=== PATIENT | male | born 1970 | race African-American/Black ===

== ENCOUNTER 2017-02-23 12:21 | Emergency (ER) | payer MEDICAID ==
--- NOTE | 2017-02-23 12:32 | ER Document Report ---
ED Medical Screen (RME) - General Chief Complaint: Urinary Problem Stated Complaint: URINARY PROBLEM Time Seen by Provider: 02/23/17 12:30 TRAVEL OUTSIDE OF THE [place] IN LAST 30 DAYS: No - HPI Notes: 02/23/17 12:32 Difficulty holding urine for to 3 months of bilateral hand numbness 2-3 months - Related Data Allergies/Adverse Reactions: No Known Allergies Allergy (Verified 02/23/17 12:27) Home Medications: Current Home Medications No Home Medications 02/23/17 [History] Past Medical History Renal/ Medical History: Denies: Hx Peritoneal Dialysis Review of Systems - Review of Systems Constitutional: Other - Difficulty holding urine to 3 months bilateral hand numbness 2-3 months Physical Exam - Vital signs Vitals: Temp Pulse Resp BP Pulse Ox 97.8 F 72 16 111/72 100 02/23/17 12:24 02/23/17 12:24 02/23/17 12:24 02/23/17 12:24 02/23/17 12:24 - Respiratory Respiratory status: No respiratory distress Chest status: Nontender Breath sounds: Normal Chest palpation: Normal Course - Re-evaluation Re-evalutation: 02/23/17 12:32 Nontoxic we will send patient to the back for further evaluation. - Vital Signs Vital signs: Temp Pulse Resp BP Pulse Ox 97.8 F 72 16 111/72 100 02/23/17 12:24 02/23/17 12:24 02/23/17 12:24 02/23/17 12:24 02/23/17 12:24
[2017-02-23 13:03] LABS: APPEARANCE,URINE CLEAR; BILIRUBIN,URINE NEGATIVE (NEGATIVE); GLUCOSE, URINE NEGATIVE (NEGATIVE); KETONES,URINE NEGATIVE (NEGATIVE); LEUKOCYTE ESTERASE,URINE NEGATIVE (NEGATIVE); NITRITE,URINE NEGATIVE (NEGATIVE); PROTEIN,URINE NEGATIVE (NEGATIVE); URINE SPECIFIC GRAVITY 1.014; UROBILINOGEN,URINE NEGATIVE mg/dL (<2.0)
--- NOTE | 2017-02-23 13:05 | ER Document Report ---
ED General - General Chief Complaint: Urinary Problem Stated Complaint: URINARY PROBLEM Time Seen by Provider: 02/23/17 12:30 Information source: Patient Notes: 46-year-old male who presents today with what he states is 3 months of intermittent numbness to bilateral hands. He states it is worse when he wakes up. He denies any weakness or pain. He denies any numbness to any other location of his body. Patient on review of systems also states around 2 weeks he is having some "dribbling urine". He denies any abdominal pain, penile lesions, testicular pain or swelling, back pain, or flank pain. Patient denies a history of this previously. 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 TRAVEL OUTSIDE OF THE [place] IN LAST 30 DAYS: No - HPI Onset: Other - See above Onset/Duration: Gradual Quality of pain: No pain Severity: Mild Pain Level: Denies Associated symptoms: Other - See above Exacerbated by: Denies Relieved by: Denies Similar symptoms previously: No Recently seen / treated by doctor: No - Related Data Allergies/Adverse Reactions: No Known Allergies Allergy (Verified 02/23/17 12:27) Home Medications: Current Home Medications No Home Medications 02/23/17 [History] Past Medical History - General Information source: Patient - Social History Smoking Status: Never Smoker Chew tobacco use (# tins/day): Yes Frequency of alcohol use: None Drug Abuse: None Family History: Reviewed & Not Pertinent Renal/ Medical History: Denies: Hx Peritoneal Dialysis Review of Systems - Review of Systems Constitutional: denies: Fever Cardiovascular: denies: Chest pain, Palpitations Respiratory: denies: Short of breath Gastrointestinal: denies: Vomiting Genitourinary: denies: Burning, Dysuria, Frequency, Flank pain, Hematuria Musculoskeletal: denies: Leg swelling Skin: Other - no hives. denies: Rash Neurological/Psychological: Other - no slurred speech -: Yes All other systems reviewed and negative Physical Exam - Vital signs Vitals: Temp Pulse Resp BP Pulse Ox 97.8 F 72 16 111/72 100 02/23/17 12:24 02/23/17 12:24 02/23/17 12:24 02/23/17 12:24 02/23/17 12:24 Notes: Reviewed vital signs and nursing note as charted by RN. CONSTITUTIONAL: Alert and oriented and responds appropriately to questions. Well -appearing; well-nourished HEAD: Normocephalic; atraumatic EYES: PERRL of left eye; false eye right eye; Conjunctivae clear, sclerae non- icteric ENT: Normal nose; no rhinorrhea; moist mucous membranes; no intraoral lesions present NECK: Supple without meningismus; non-tender; no cervical lymphadenopathy, no masses CARD: Regular rate and rhythm; no murmurs, no clicks, no rubs, no gallops; symmetric distal pulses RESP: Normal chest excursion without splinting or tachypnea; breath sounds clear and equal bilaterally ABD/GI: Normal bowel sounds; non-distended; soft, non-tender GI/: No penile lesions. No testicular pain or swelling. BACK: The back appears normal and is non-tender to palpation, there is no CVA tenderness EXT: Normal ROM in all joints; non-tender to palpation; no cyanosis, no effusions, no edema SKIN: Normal color for age and race; warm; dry; good turgor; capillary refill < 2 seconds; no acute lesions noted NEURO: Patient has 5 out of 5 bilateral upper and lower extremity strength. Patient's sensation is intact to light touch. No obvious erythema or induration to the extremities. PSYCH: The patient's mood and manner are appropriate. Grooming and personal hygiene are appropriate. Course - Re-evaluation Re-evalutation: 02/23/17 13:04 Given the above history and physical examination we will obtain electrolytes, and urinalysis and a urine chlamydia/gonorrhea. Patient currently has no penile lesions, testicular pain or swelling, abdominal pain, flank pain, or neurological deficits. Patient does work a manual labor job with numbness to bilateral hands worse in the morning. This is concerning most likely for carpal tunnel syndrome. 02/23/17 14:14 Labs as recorded. Normal magnesium. No change in examination. Patient's creatinine 1.1. Slightly elevated potassium that is nonspecific. Patient takes no medications. Urine analysis shows no infection. Urine chlamydia/ gonorrhea is pending. Patient will be discharged home with strict return precautions and referral to orthopedics for further evaluation of his possible carpal tunnel syndrome. Strict return precautions have been explained. 02/23/17 14:15 I have checked the patient's prostate and detect no enlargement, nodules, bogginess, or tenderness. - Vital Signs Vital signs: Temp Pulse Resp BP Pulse Ox 97.8 F 72 12 111/72 100 02/23/17 12:24 02/23/17 12:24 02/23/17 12:31 02/23/17 12:24 02/23/17 12:24 - Laboratory Result Diagrams: 02/23/17 13:10 02/23/17 13:10 Laboratory results interpreted by me: 02/23/17 02/23/17 12:39 13:10 Sodium 135.2 L Potassium 5.2 H Chloride 97 L Urine Ascorbic Acid 40 H Discharge - Discharge Clinical Impression: Numbness in both hands Urinary incontinence Qualifiers: Urinary Incontinence type: unspecified incontinence Qualified Code(s): R32 - Unspecified urinary incontinence Condition: Good Disposition: HOME, SELF-CARE Additional Instructions: Come back immediately for any increased numbness, extension of the numbness, any weakness, any fevers, any vomiting, any abdominal pain, back pain, pain with urination, or any other acute problems. Please follow-up with orthopedics as we have discussed for further evaluation of your hand numbness. Referrals: MELISSA OSORIO MD [ACTIVE STAFF] - Follow up as needed
[2017-02-23 13:24] LABS: ABSOLUTE BASOPHILS # (AUTO) 0.1 10^3/uL (0.0-0.2); ABSOLUTE EOSINOPHILS # (AUTO) 0.2 10^3/uL (0.0-0.6); ABSOLUTE LYMPHOCYTES (AUTO) 1.2 10^3/uL (0.5-4.7); ABSOLUTE MONOCYTES (AUTO) 0.4 10^3/uL (0.1-1.4); ABSOLUTE NEUT (AUTO) 3.9 10^3/uL (1.7-8.2); BASOPHILS % (AUTO) 1.1 % (0-2); EOSINOPHILS % (AUTO) 2.9 % (0-6); HEMATOCRIT 43.2 % (37.9-51.0); HGB HCT DIFFERENCE 1.8; LYMPHOCYTES % (AUTO) 20.6 % (13-45); MEAN CORPUSCULAR HEMOGLOBIN 32.9 pg (27.0-33.4); MEAN CORPUSCULAR HGB CONC 34.8 g/dL (32.0-36.0); MEAN CORPUSCULAR VOLUME 94 fl (80-97); MONOCYTES % (AUTO) 6.5 % (3-13); RED BLOOD COUNT 4.58 10^6/uL (4.35-5.55); RED CELL DISTRIBUTION WIDTH 12.2 % (11.5-14.0); SEGMENTED NEUTROPHILS % (AUTO) 68.9 % (42-78); WHITE BLOOD COUNT 5.7 10^3/uL (4.0-10.5)
[2017-02-23 13:43] LABS: ANION GAP 11 (5-19); BLOOD UREA NITROGEN 16 mg/dL (7-20); CALCIUM 9.9 mg/dL (8.4-10.2); CARBON DIOXIDE 27 mmol/L (22-30); CHLORIDE 97 mmol/L (98-107); CREATININE RESULT 1.12 mg/dL (0.52-1.25); GLUCOSE 84 mg/dL (75-110); MAGNESIUM 2.2 mg/dL (1.6-2.3); POTASSIUM 5.2 mmol/L (3.6-5.0); SODIUM 135.2 mmol/L (137-145)
[2017-02-23 14:30] LABS: CHLAM PCR NOT DETECTED (NOT DETECT)
[2017-02-23 14:33] VITALS: BP 107/63
== END 2017-02-23 14:25 | disposition home or self-care (01) ==
LOC: ER 12:21
DX: R32 Unspecified urinary incontinence (principal); R20.0 Anesthesia of skin; R39.198 Other difficulties with micturition
CPT/HCPCS: 36415; 80048; 81001; 83735; 85025; 87491; 87591; 99284